=== PATIENT | female | born 1985 | race Caucasian/White ===

== ENCOUNTER 2017-01-14 10:05 | Emergency (ER) | payer OTHER ==
[~2017-01-14] VITALS: Ht 165.1 cm; Wt 68.2 kg
[2017-01-14 10:07] VITALS: BP 131/81; PULSE 113; TEMP 97.6
[2017-01-14] MEDS ORDERED: TOPAMAX50 MG PO (10:38)
[2017-01-14] MEDS ORDERED: FLEXERIL 1010 MG/TAB PO (12:01)
[2017-01-14] MEDS ORDERED: IBU800 M1 PO (12:22)
== END 2017-01-14 12:41 | disposition home or self-care (01) ==
LOC: COL.ER 10:05
DX: S16.1XXA Strain of muscle, fascia and tendon at neck level, initial encounter (principal); S12.100A Unspecified displaced fracture of second cervical vertebra, initial encounter for closed fracture; X50.9XXA Other and unspecified overexertion or strenuous movements or postures, initial encounter